=== PATIENT | male | born 1980 | race Caucasian/White ===

== ENCOUNTER 2023-03-27 09:30 | Emergency (ER) | payer BC, SELFPAY ==
--- NOTE | ~2023-03-27 | XR_ITS ---
XR chest 2V DATE: 03/27/2023 10:23 INDICATION: Cough, congestion TECHNIQUE: 2 views COMPARISON: FINDINGS: Normal heart size. No hilar or mediastinal enlargement. No pulmonary infiltrate or consolid ation, pleural effusion or pulmonary vascular congestion or pneumothorax. Included skeletal structure s are unremarkable. IMPRESSION: Negative Reviewed, dictated and finalized at location A. IMPRESSION: Negative
[2023-03-27 09:43] VITALS: BP 123/77; PULSE 88; RESP 20; TEMP 36.3; O2SAT 98
--- NOTE | 2023-03-27 10:10 | ED.GENADULT ---
HPI - General Adult General Chief complaint: Upper Respiratory Infection Stated complaint: Congestion,Body Aches,Chills Time Seen by Provider: 03/27/23 10:11 Source: patient Mode of arrival: ambulatory Limitations: no limitations History of Present Illness HPI narrative: 42-year-old male patient presents to the [facility] with complaints of upper respiratory symptoms for the past 9-10 days. Patient states this started off with the congestion and mild cough and has gotten increasingly worse and last night started having fevers as high as 101.6, body aches, chills. Patient states the cough has gotten worse and feels that when he takes in a deep breath it does have slight pain and causes him to cough. Patient denies any chest pain currently but states when the symptoms 1st started he had mild chest pain that only lasted about a day that was intermittent. Patient states he has been taking [id number] ibuprofen for his symptoms. Patient states he is vaccinated against COVID. Related Data Allergies Allergy/AdvReac Type Severity Reaction Status Date / Time No Known Allergies Allergy Verified 03/27/23 09:51 Review of Systems Review of Systems: CONSTITUTIONAL: Positive fever, body aches and chills, positive sweats. EYES: Denies visual changes, redness, or discharge. ENT: positive rhinorrhea, congestion, sore throat, denies otalgia. CARDIOVASCULAR: Denies chest pain, palpitations, or edema. RESPIRATORY: positive cough with intermittent dyspnea. GASTROINTESTINAL: Denies abdominal pain, nausea, vomiting, or diarrhea. GENITOURINARY: Denies dysuria or hematuria. SKIN: Denies rash or itching. MUSCULOSKELETAL: Denies back pain, joint pain, or myalgia. NEUROLOGIC: Denies headache, numbness, or weakness. PSYCHIATRIC: Denies anxiety or depression. [facility] Past Medical History Medical History (Updated 03/27/23 @ 10:34 by LIBRADO Johnson) COVID-19 virus infection Comments At the time of my signature I agree with nursing past medical history, surgical, social, and family history. There is no relevant family history pertinent to the presenting complaint. Exam Narrative: GENERAL: Well-appearing, well-nourished, and in no acute distress. HEAD: Normocephalic, atraumatic. EYES: PERRLA and EOMI. ENT: Nares erythema edema noted bilaterally, no rhinorrhea or epistaxis. Mucous membranes moist. posterior pharynx with erythema and uvula swelling noted. No exudates or lesions present. Bilateral TMs are clear no erythema or foreign bodies the canal. NECK: Supple. No lymphadenopathy CHEST: Clear to auscultation. No respiratory distress. Patient will talk clear complete sentences. Patient does have a cough during exam noted. HEART: Regular rate and rhythm. No murmur heard. Normal peripheral pulses. ABDOMEN: Soft, nontender, nondistended, normal active bowel sounds. EXTREMITIES: Normal range of motion. No edema. SKIN: Warm, dry, no rash. NEURO: No focal deficits. Alert and oriented x3. Course Course Level of Care: Express Care Visit Reevaluation(s) Reevaluation #1: Re-evaluated patient notified him that his swabs were all negative today and is x-rays negative for any pneumonia. Discussed with patient I do believe he most likely has some type of sinus infection or some type of upper respiratory bronchitis. We will discharge him home with an antibiotic for any possible sinus infection, and inhaler, Tessalon Perles and steroids help with any the bronchitis symptoms as well as a daily antihistamine. Patient verbalized understanding denies any other questions or concerns at this time. Date: 03/27/23 Time: 10:36 Vital Signs Vital signs: Vital Signs Temperature 36.3 C L 03/27/23 09:43 Pulse Rate 88 03/27/23 09:43 Respiratory Rate 20 03/27/23 09:43 Blood Pressure 123/77 03/27/23 09:43 Pulse Oximetry 98 03/27/23 09:43 Oxygen Delivery Room Air 03/27/23 09:43 Temperature 36.3 C L 03/27/23 09:43
== END 2023-03-27 10:38 | disposition home or self-care (01) ==
PROVIDERS: Emergency Provider Nurse Practitioner Family; PCP Family Medicine Sports Medicine
DX: J01.90 Acute sinusitis, unspecified (principal); J06.9 Acute upper respiratory infection, unspecified; Z20.822 Contact with and (suspected) exposure to COVID-19
CPT/HCPCS: 71046; 87081; 87426; 87804; 87880; 99213; C9803; G0463